=== PATIENT | male | born 1990 | race Caucasian/White ===

== ENCOUNTER 2024-03-23 07:17 | Emergency (ER) | payer SELFPAY | END 2024-03-23 09:14 | disposition home or self-care (01) | LOC: CSHERS 07:17 | DX: K27.9 Peptic ulcer, site unspecified, unspecified as acute or chronic, without hemorrhage or perforation (principal); F17.220 Nicotine dependence, chewing tobacco, uncomplicated | CPT/HCPCS: 80053; 81001; 83690; 85025; 99284 ==